=== PATIENT | male | born 1990 | race Caucasian/White ===

== ENCOUNTER 2017-08-19 00:37 | Inpatient (IN) | payer SELFPAY ==
[~2017-08-19] VITALS: Ht 188 cm; Wt 79.0 kg
--- NOTE | 2017-08-19 01:06 | EMERGENCY ROOM VISIT NOTE ---
History Report prepared by Elizabeth: Lucien Kaur Under the Supervision of: Dr. Divine Javed D.O. 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 Per EMS, the patient recently had a break up and has been drinking since then. There is an obvious odor of alcohol on his breath according to EMS. In review of his medical records, he has had multiple previous visits, all alcohol related. The patient's friends at bedside. The friends state the patient 's girlfriend broke up with him three months ago. They report the patient was in the relationship for three years. I asked the patient if he was suicidal and he replied yes. HPI is limited secondary to alcohol intoxication. Source of History: patient, friend, EMS History Limited By: intoxication (alcohol) Onset: HUMAN RESOURCE OFFICER Position: other (general ) Quality: other (alcohol intoxication) Timing: other (persistent) Review of Systems ROS is limited secondary to alcohol intoxication. Past Medical & Surgical Medical Problems: (1) Alcohol abuse (2) Alcoholic intoxication (3) Suicidal intent Family History No pertinent family history Social History Alcohol Use: heavy Marital Status: single Housing Status: lives with roommate Occupation Status: employed Current/Historical Medications Unable to Obtain Active Prescriptions or Reported Meds Allergies Coded Allergies: No Known Allergies (Unverified , 03/18/13) Physical Exam Vital Signs Date Time Temp Pulse Resp B/P (MAP) Pulse Ox O2 Delivery O2 Flow Rate FiO2 08/19/17 02:37 91 20 128/72 93 Room Air 08/19/17 01:30 97 18 125/73 95 Nasal Cannula 2.0 08/19/17 01:06 95 Nasal Cannula 4.0 08/19/17 00:59 93 Room Air 08/19/17 00:57 36.4 87 20 119/75 93 Room Air 08/19/17 00:50 96 Physical Exam General: Incomprehensible speech. Smells of ETOH. Laughing inappropriately. Tossing himself about the bed. HEENT: Head - normocephalic and atraumatic Pupils are 8 mm, round, and non- reactive to light. Extraocular eye muscles are intact, and sclera are anicteric. Nose - moist nasal mucosa without discharge. Mouth - moist buccal mucosa. Oropharynx is nonerythematous and there is no tonsillar exudate or edema noted. Neck: Supple; no JVD, nuchal rigidity, cervical lymphadenopathy. Heart: Tachycardic rate, regular rhythm. There is a normal S1 and S2 with no murmurs, clicks, or gallops appreciated. Lungs: Clear to auscultation bilaterally with no wheezes, rales, or rhonchi. Abdomen: Soft, completely nontender, nondistended, with good bowel sounds. There are no palpable pulsatile masses or hepatosplenomegaly. There is no guarding, rigidity, or rebound noted. Extremities: No evidence of cyanosis, clubbing, or edema. There are easily palpable peripheral pulses. Skin: warm and dry with good turgor and no rashes. Medical Decision & Procedures Laboratory Results 08/19/17 02:23 Red Blood Count 4.99, Mean Corpuscular Volume 96.6, Mean Corpuscular Hemoglobin 34.3, Mean Corpuscular Hemoglobin Concent 35.5, Mean Platelet Volume 9.1, Neutrophils (%) (Auto) 56.9, Lymphocytes (%) (Auto) 33.5, Monocytes (%) (Auto) 7.6, Eosinophils (%) (Auto) 1.1, Basophils (%) (Auto) 0.8, Neutrophils # (Auto) 5.12, Lymphocytes # (Auto) 3.01, Monocytes # (Auto) 0.68, Eosinophils # (Auto) 0.10, Basophils # (Auto) 0.07 Test 08/19/17 00:00 08/19/17 02:23 08/19/17 02:25 Urine Opiates Screen NEG (NEG) Urine Methadone, Qualitative NEG (NEG) Urine Barbiturates NEG (NEG) Urine Phencyclidine (PCP) Level NEG (NEG) Ur Amphetamine/Methamphetamine NEG (NEG) MDMA (Ecstasy) Screen NEG (NEG) Urine Benzodiazepines Screen NEG (NEG) Urine Cocaine Metabolite NEG (NEG) Urine Marijuana (THC) POS (NEG) White Blood Count 8.99 K/uL (4.8-10.8) Red Blood Count 4.99 M/uL (4.7-6.1) Hemoglobin 17.1 g/dL (14.0-18.0) Hematocrit 48.2 % (42-52) Mean Corpuscular Volume 96.6 fL (80-100) Mean Corpuscular Hemoglobin 34.3 pg (25-34) Mean Corpuscular Hemoglobin Concent 35.5 g/dl (32-36) Platelet Count 273 K/uL (130-400) Mean Platelet Volume 9.1 fL (7.4-10.4) Neutrophils (%) (Auto) 56.9 % Lymphocytes (%) (Auto) 33.5 % Monocytes (%) (Auto) 7.6 % Eosinophils (%) (Auto) 1.1 % Basophils (%) (Auto) 0.8 % Neutrophils # (Auto) 5.12 K/uL (1.4-6.5) Lymphocytes # (Auto) 3.01 K/uL (1.2-3.4) Monocytes # (Auto) 0.68 K/uL (0.11-0.59) Eosinophils # (Auto) 0.10 K/uL (0-0.5) Basophils # (Auto) 0.07 K/uL (0-0.2) RDW Standard Deviation 49.2 fL (36.4-46.3) RDW Coefficient of Variation 13.9 % (11.5-14.5) Immature Granulocyte % (Auto) 0.1 % Immature Granulocyte # (Auto) 0.01 K/uL (0.00-0.02) Prothrombin Time 9.5 SECONDS (9.0-12.0) Prothromb Time International Ratio 0.9 (0.9-1.1) Activated Partial Thromboplast Time 26.7 SECONDS (21.0-31.0) Partial Thromboplastin Ratio 1.0 Total Bilirubin 0.5 mg/dl (0.2-1) Direct Bilirubin 0.1 mg/dl (0-0.2) Aspartate Amino Transf (AST/SGOT) 26 U/L (15-37) Alanine Aminotransferase (ALT/SGPT) 30 U/L (12-78) Alkaline Phosphatase 57 U/L (45-117) Total Protein 8.2 gm/dl (6.4-8.2) Albumin 4.4 gm/dl (3.4-5.0) Salicylates Level 3.9 mg/dl (2.8-20) Acetaminophen Level < 2 ug/ml (10-30) Laboratory results per my review. Medications Administered Medications (Trade) Dose Ordered Sig/Mil Route Start Time Stop Time Status Last Admin Dose Admin Polyethylene (Miralax Powder Packet) 17 gm DAILY PRN PO 08/19/17 02:45 09/18/17 02:44 08/19/17 04:22 17 GM ED Course 0050: Past medical records reviewed. The patient was evaluated in room B2. A complete history and physical exam was performed. The patient was placed in the prone position to avoid aspiration. They were observed on the rn cardiac rehab and pulse oximeter. Labs were drawn as above 0114: I reassessed the patient at this time. He is resting. 0210: I reassessed the patient at this time. He is hemodynamically stable. The patient is significantly intoxicated with a blood alcohol near 500. An IV lock was initiated and additional laboratory testing was drawn. 0212: I spoke with Dr. Lowe, resident for Dr. Stanley, hospitalist. We discussed the patient's case. The patient will be evaluated by the [facility] for further management. 0235: I reassessed the patient at this time. He is agitated. We have tried to talk him down and he has become more cooperative. His vitals are more stable. Medical Decision The patient is a 27 year old male who presents to the ED with alcohol intoxication. Differential diagnosis includes alcohol overdose, drug intoxication, hypoglycemia, and head injury. Lab results showed: Alcohol 489. Potassium 3.4. Gluc 109. Normal renal function. The patient was brought to the emergency department for an altered mental status. There were no obvious signs of trauma or complaints of pain. They were observed closely throughout the night and remained stable while here in the ER. The patient had a blood alcohol level near 500. He was monitored closely for respiratory depression. Since the patient answered yes to my questions about attempts to harm himself, he will need to remain here in the hospital until he is clinically sober and then have evaluation by psychiatry. I discussed the case with the [facility] staff and they will evaluate for further management. Medication Reconcilliation Current Medication List: was personally reviewed by me Blood Pressure Screening Patient's blood pressure: Normal blood pressure Consults Time Called: 211 Consulting Physician: Dr. Lowe, resident for Dr. Stanley hospitalist I spoke with Dr. Lowe, resident for Dr. Stanley hospitalist. We discussed the patient's case. The patient will be evaluated by the [facility] for further management. Impression Primary Impression: Alcohol overdose Scribe Attestation The scribe's documentation has been prepared under my direction and personally reviewed by me in its entirety. I confirm that the note above accurately reflects all work, treatment, procedures, and medical decision making performed by me. Departure Information Dispostion Being Evaluated By Hospitalist Prescriptions Unable to Obtain Active Prescriptions or Reported Meds Referrals No Doctor, Assigned (PCP) Problem Qualifiers Primary Impression: Alcohol overdose Encounter type: initial encounter Injury intent: intentional self-harm Qualified Codes: T51.92XA - Toxic effect of unspecified alcohol, intentional self-harm, initial encounter
[2017-08-19 01:30] LABS: CALCIUM 8.6 mg/dl (8.5-10.1); CREATININE 0.9 mg/dl (0.60-1.40); POTASSIUM 3.4 mmol/L (3.5-5.1)
[2017-08-19 02:36] LABS: BASO % 0.8 %; BASO ABS # 0.07 K/uL (0-0.2); EOS % 1.1 %; HEMATOCRIT 48.2 % (42-52); HEMOGLOBIN 17.1 g/dL (14.0-18.0); IG# 0.01 K/uL (0.00-0.02); LYMPH % 33.5 %; LYMPH ABS # 3.01 K/uL (1.2-3.4); MEAN CELL VOLUME 96.6 fL (80-100); MEAN CORPUSCULAR HEMOGLOBIN 34.3 pg (25-34); MEAN CORPUSCULAR HGB CONC 35.5 g/dl (32-36); MEAN PLATELET VOLUME 9.1 fL (7.4-10.4); MONO % 7.6 %; MONO ABS # 0.68 K/uL (0.11-0.59); NEUT % 56.9 %; NEUT ABS # 5.12 K/uL (1.4-6.5); PLATELET COUNT 273 K/uL (130-400); RED CELL DISTRIBUTION WIDTH CV 13.9 % (11.5-14.5); RED CELL DISTRIBUTION WIDTH SD 49.2 fL (36.4-46.3); WHITE BLOOD COUNT 8.99 K/uL (4.8-10.8)
[2017-08-19] MEDS ORDERED: ONDANSETRON INJ 2 MG/ML 2 ML VIAL IV PRN (02:45)
[2017-08-19] MEDS ORDERED: ACETAMINOPHEN 325 MG TAB PO PRN (02:45)
[2017-08-19] MEDS ORDERED: POLYETHYLENE (MIRALAX) 17 GM PACK PO PRN (02:45)
[2017-08-19] MEDS ORDERED: NITROGLYCERIN 0.4 MG SL PER TAB CHARGE SL PRN (02:45)
[2017-08-19] MEDS ORDERED: ALUMINUM/MAGNESIUM/SIMETH (MAALOX MAX) 30 ML UDC PO PRN (02:45)
[2017-08-19] MEDS ORDERED: MAGNESIUM HYDROXIDE SUSP 30 ML UDC PO PRN (02:45)
[2017-08-19 02:51] LABS: INR 0.9 (0.9-1.1); PTT PATIENT 26.7 SECONDS (21.0-31.0)
[2017-08-19 02:56] LABS: ALBUMIN 4.4 gm/dl (3.4-5.0); TOTAL PROTEIN 8.2 gm/dl (6.4-8.2)
--- NOTE | 2017-08-19 03:20 | History and Physical ---
History & Physical Date & Time of Service: August 19, 2017 at 02:45 Chief Complaint: Semi Responsive, Ams Primary Care Physician: No Doctor, Assigned History of Present Illness Source: patient, clinic records, hospital records 27 yo male with recurrent (x5) alcohol-related visits to the ER previously, presents today intoxicated with an alcohol level of 489. 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 The patient declines to quantify the amount of alcohol consumption saying he drinks "enough." He admits to smoking, but declines to elaborate what he smokes, or if he takes additional substances. He admits to a recent break up with his girlfriend and states he was drinking to hurt himself. History and ROS is otherwise limited to intoxication and non-cooperation. Past Medical/Surgical History Medical Problems: Alcohol abuse Family History No pertinent family history Unknown Social History Smoking Status: Current Every Day Smoker Smokeless Tobacco Use: Unknown Alcohol Use: heavy Drug Use: marijuana Marital Status: single Occupational Status: employed Immunizations History of Influenza Vaccine: Unknown History of Tetanus Vaccine?: Unknown History of Pneumococcal: Unknown History of Hepatitis B Vaccine: Unknown Allergies Coded Allergies: No Known Allergies (Unverified , 03/18/13) Home Medications Unable to Obtain Active Prescriptions or Reported Meds Physical Exam Vital Signs Date Time Temp Pulse Resp B/P (MAP) Pulse Ox O2 Delivery O2 Flow Rate FiO2 08/19/17 02:37 91 20 128/72 93 Room Air 08/19/17 01:30 97 18 125/73 95 Nasal Cannula 2.0 08/19/17 01:06 95 Nasal Cannula 4.0 08/19/17 00:59 93 Room Air 08/19/17 00:57 36.4 87 20 119/75 93 Room Air 08/19/17 00:50 96 General Appearance: WD/WN, no apparent distress Head: normocephalic, atraumatic, + pertinent finding (drool down side of face) Eyes: sclerae normal ENT: hearing grossly normal Neck: supple Respiratory/Chest: no respiratory distress, no accessory muscle use Cardiovascular: regular rate, rhythm, no murmur, normal peripheral pulses Abdomen/GI: normal bowel sounds, non tender, soft Back: normal inspection Extremities/Musculoskelatal: no calf tenderness, no pedal edema Neurologic/Psych: alert, + pertinent finding (Patient a lot more coherent and appropriately responsive than expected for someone with such high alcohol level) Skin: normal color, warm/dry, no rash Diagnostics Laboratory Results Results Past 24 Hours Test 08/19/17 01:02 08/19/17 02:23 08/19/17 02:25 Range/Units Sodium Level 141 136-145 mmol/L Potassium Level 3.4 3.5-5.1 mmol/L Chloride Level 108 98-107 mmol/L Carbon Dioxide Level 25 21-32 mmol/L Anion Gap 8.0 3-11 mmol/L Blood Urea Nitrogen 13 7-18 mg/dl Creatinine 0.90 0.60-1.40 mg/dl Est Creatinine Clear Calc Drug Dose 117.9 ml/min Estimated GFR () 134.2 Estimated GFR (Non- 115.8 BUN/Creatinine Ratio 14.6 10-20 Random Glucose 109 70-99 mg/dl Calcium Level 8.6 8.5-10.1 mg/dl Ethyl Alcohol mg/dL 489.0 0-3 mg/dl White Blood Count 8.99 4.8-10.8 K/uL Red Blood Count 4.99 4.7-6.1 M/uL Hemoglobin 17.1 14.0-18.0 g/dL Hematocrit 48.2 42-52 % Mean Corpuscular Volume 96.6 80-100 fL Mean Corpuscular Hemoglobin 34.3 25-34 pg Mean Corpuscular Hemoglobin Concent 35.5 32-36 g/dl Platelet Count 273 130-400 K/uL Mean Platelet Volume 9.1 7.4-10.4 fL Neutrophils (%) (Auto) 56.9 % Lymphocytes (%) (Auto) 33.5 % Monocytes (%) (Auto) 7.6 % Eosinophils (%) (Auto) 1.1 % Basophils (%) (Auto) 0.8 % Neutrophils # (Auto) 5.12 1.4-6.5 K/uL Lymphocytes # (Auto) 3.01 1.2-3.4 K/uL Monocytes # (Auto) 0.68 0.11-0.59 K/uL Eosinophils # (Auto) 0.10 0-0.5 K/uL Basophils # (Auto) 0.07 0-0.2 K/uL RDW Standard Deviation 49.2 36.4-46.3 fL RDW Coefficient of Variation 13.9 11.5-14.5 % Immature Granulocyte % (Auto) 0.1 % Immature Granulocyte # (Auto) 0.01 0.00-0.02 K/uL Impression Assessment and Plan 27 yo male with recurrent (x5) alcohol-related visits to the ER previously, presents today intoxicated with an alcohol level of 489 and admits he was drinking to hurt himself. Substance abuse - Alcohol and marijuana - IVF NSS - Tylenol levels pending - Patient a lot more coherent and appropriately responsive than expected for someone with such high alcohol level - implies chronicity. Monitor for signs of alcohol withdrawal Suicidal intention - 1 to 1 ordered - Psych eval ordered VTE ppx - SCD FULL CODE Attending addendum: I have physically seen this patient, have supervised the medical residents activities, and agree with the H&P unless as otherwise noted. Assessment and Plan: Alcohol overdose/suicidal ideation-- Admit to the telemetry unit. Regular diet as tolerated. Serial alcohol levels. One-on-one Consult psychiatry. Ability to be able to communicate with an alcohol level of 489, suggest more chronic issue. Alcohol withdrawal scale. Advanced Directives Existing Advance Directive: No Existing Living Will: No Existing Power of Rapier Insertion Loom Fixer: No Resuscitation Status Full VTE Prophylaxis Will order VTE Prophylaxis: Yes Resident Tracking Resident Involvement: Resident Care Provided Care Provided: Adult Hospital Medicine
[2017-08-19 04:05] VITALS: BP 122/69; PULSE 72; TEMP 36.5; O2SAT 97; Ht 188 cm; Wt 79.0 kg
[2017-08-19] MEDS: SODIUM CHLORIDE 0.9% 1000ML 1,000 ML IV SCH ×3 (04:50→11:22)
[2017-08-19 05:00] LABS: CALCIUM 8.2 mg/dl (8.5-10.1); CREATININE 0.93 mg/dl (0.60-1.40)
[2017-08-19] MEDS ORDERED: LORAZEPAM 2 MG/ML 1 ML VIAL IV STA ×2 (06:34→07:36)
[2017-08-19] MEDS ORDERED: HALOPERIDOL LACTATE 5 MG/ML 1 ML VIAL IM STA ×2 (06:40→07:37)
[2017-08-19] MEDS ORDERED: NURSING VERBAL MED ORDER ONE ×2 (07:30)
[2017-08-19 08:00] VITALS: BP 98/46; PULSE 82; TEMP 36.7; O2SAT 95
--- NOTE | 2017-08-19 11:14 | Progress Note ---
Progress Note Date of Service August 19, 2017. Progress Note Attending follow up, patient admitted after midnight. Patient had to be sedated with Haldol and Ativan this morning, two dose of both given, resting since that time. Patient's friends arrived to check on him Asked what they saw last night, said that he arrived for work, appeared intoxicated, stepped outside for some time, returned and was extremely intoxicated, blacked out. 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 Patient has never made any suicidal statements to friends that they can recall. Urine toxicology screen negative Blood alcohol level still quite high this AM - continue supportive care with fluids, PRN Haldol and Ativan for severe agitation - thiamine and folate - psychiatry consult once he is awake and alert and cooperative to rule out suicidal thoughts - anticipate going home tomorrow
[2017-08-19] MEDS ORDERED: HALOPERIDOL LACTATE 5 MG/ML 1 ML VIAL IV PRN (11:15)
[2017-08-19] MEDS ORDERED: LORAZEPAM 2 MG/ML 1 ML VIAL IV PRN ×2 (11:15→12:00)
[2017-08-19 12:00] VITALS: BP 99/54; PULSE 88; TEMP 36.7; O2SAT 98
--- NOTE | 2017-08-19 14:38 | Discharge Instructions ---
Discharge Instructions Date of Service August 19, 2017. Admission Reason for Admission: Alcoholic Intoxication Discharge Discharge Diagnosis / Problem: Alcohol intoxication Discharge Goals Goal(s): Decrease discomfort, Improve disease control Activity Recommendations Activity Limitations: resume your previous activity . Instructions / Follow-Up Instructions / Follow-Up Blood alcohol level was extremely high at time of admission at 490, this is a dangerous level Urine drug screen negative for any other type of drugs get rest and plenty of fluids over next few days please abstain from drinking please seek medical treatment if you want treatment for depression Current Hospital Diet Patient's current hospital diet: Regular Diet Discharge Diet Recommended Diet: Regular Diet Pending Studies Studies pending at discharge: no Medical Emergencies . Who to Call and When: Medical Emergencies: If at any time you feel your situation is an emergency, please call 911 immediately. . Non-Emergent Contact Non-Emergency issues call your: Primary Care Provider . . "Provider Documentation" section prepared by Connor Bullock. . [place] Drug Monitoring Program Search Results: no issues identified
[2017-08-19 14:47] VITALS: BP 99/54; PULSE 88; TEMP 36.7; O2SAT 98
--- NOTE | 2017-08-19 15:21 | Psychiatric Consultation ---
Consultation Date of Consultation August 19, 2017. Identifying Data 27-year-old male brought to the emergency department by EMS after falling unconscious at work. We are consulted to evaluate the possibility of a suicide attempt. Information is gathered from the patient, the EMR, and considered to be reliable. Chief Complaint "I was crying in the lobby before group and said I needed to talk to someone. I drink too big mood shines from sheets and that is all I remember.". History of Present Illness The patient is a 27-year-old gentleman from the [facility], who came to [employer] to attend [employer], "it did not work out", and is now working in food service order clerk. It is reported that yesterday he was at work performing his duties and then collapsed to the floor unconscious. A friend reported that he had gone through a breakup and was worried he was suicidal. Upon my interview today, he has just awoken after having been given Haldol and Ativan this morning when he was agitated. He says the last thing he remembers is drinking the 2 moonshine's and then does not remember anything until waking up in ICU. He admits that he went through a breakup in May of this year and that he was sad but is "getting over it". He denies there was any suicidality and drinking the alcohol and denies that he has seen himself as depressed. He indicates that his sleep and appetite have been good. He admits that he has been drinking heavily for the last month and a half, and drinking almost daily for quite some time. He denies any vegetative symptoms of depression. He is interested in getting out of the hospital, not thinking he needs to be here any longer. He is not interested in inpatient alcohol rehab, not interested in a referral for outpatient treatment for substances or for mood issues. Past Psychiatric History Current OP Treatment: no current treatment Prior OP Treatment: no prior treatment Prior Psych Hospitalizations: none Access to a Gun: No Suicide Attempts: No Past Medical/Surgical History (1) Alcoholic intoxication Allergies Allergies: Coded Allergies: No Known Allergies (Unverified , 03/18/13) Home Medications Unable to Obtain Active Prescriptions or Reported Meds Family History No pertinent family history History of Suicide: No History of Substance Abuse: No Psychiatric History: No Alcohol Use Alcohol Use In Past 12 Months: Yes Drinks almost daily until he is blacked out Smoking Use Smoking Status: Current Every Day Smoker Substance History Smokes marijuana, but denies other illegal substances Personal History Lives in: [place] Childhood: [place] Education: started college Relationship History: never Children: none Psychological Trauma History: Significant Loss Review of Systems Constitutional: denies no symptoms reported, denies see HPI, denies chills, denies diaphoresis, denies fever, denies malaise, denies weakness, denies other Eyes: denies: no symptoms, as stated in HPI, eye pain, tearing, itching, redness, discharge, double vision, visual changes, blurred vision, photophobia, other ENT: denies: no symptoms reported, see HPI, ear pain, ear discharge, loss of hearing, tinnitus, nasal pain, nasal congestion, rhinorrhea, epistaxis, sore throat, stidor, throat swelling, mouth pain, mouth swelling, dental pain, gum swelling, other Cardiovascular: denies: no symptoms reported, see HPI, chest pain, chest tightness, chest pressure, diaphoresis, palpitations, syncope, other Respiratory: denies: no symptoms reported, see HPI, cough, orthopnea, short of breath, stridor, wheezing, sputum production, cyanosis, FISCHER, PND, other Gastrointestinal: denies no symptoms reported, denies see HPI, denies abdominal pain, denies constipation, denies diarrhea, denies nausea, denies vomiting, denies other Genitourinary - Male: denies: no symptoms, see HPI, rash, amenorrhea, penile itching, penile discharge, testicular pain, testicular swelling, impotence, other Musculoskeletal: denies no symptoms reported, denies see HPI, denies back pain , denies gout, denies joint pain, denies joint swelling, denies muscle pain, denies muscle stiffness, denies neck pain, denies other Integumentary: denies no symptoms reported, denies see HPI, denies change in color, denies change in hair/nails, denies dryness, denies lesions, denies lumps , denies rash, denies other Neurologic: denies: no symptoms, see HPI, headache, numbness, paresthesias, pre -existing deficit, seizure, tingling, tremors, general weakness, tics, focal weakness, vertigo, lethargy, memory loss, dizziness, other Endocrine: denies: no symptoms, as stated in HPI, cold intolerance, heat intolerance, hair changes, goiter, polydipsia, polyuria, skin changes, other Hematologic / Lymphatic: denies: no symptoms, as stated in HPI, abnormal clotting, adenopathy, anemia, easy bleeding, easy bruising, gums bleeding, petechiae, other Examination Vital Signs Vital Signs Past 12 Hours Date Time Temp Pulse Resp B/P (MAP) Pulse Ox O2 Delivery O2 Flow Rate FiO2 08/19/17 14:47 36.7 88 16 98 Room Air 08/19/17 12:00 36.7 88 16 99/54 (69) 98 08/19/17 12:00 Room Air 08/19/17 08:00 36.7 82 15 98/46 (63) 95 08/19/17 08:00 Room Air 08/19/17 04:05 36.5 72 18 122/69 97 Room Air 08/19/17 03:30 91 16 120/65 97 Room Air Laboratory Results Last 24 Hours Test 08/19/17 00:00 08/19/17 01:02 08/19/17 02:23 08/19/17 02:25 Urine Opiates Screen NEG Urine Methadone, Qualitative NEG Urine Barbiturates NEG Urine Phencyclidine (PCP) Level NEG Ur Amphetamine/Methamphetamine NEG MDMA (Ecstasy) Screen NEG Urine Benzodiazepines Screen NEG Urine Cocaine Metabolite NEG Urine Marijuana (THC) POS Sodium Level 141 mmol/L Potassium Level 3.4 mmol/L Chloride Level 108 mmol/L Carbon Dioxide Level 25 mmol/L Anion Gap 8.0 mmol/L Blood Urea Nitrogen 13 mg/dl Creatinine 0.90 mg/dl Est Creatinine Clear Calc Drug Dose 117.9 ml/min Estimated GFR () 134.2 Estimated GFR (Non- 115.8 BUN/Creatinine Ratio 14.6 Random Glucose 109 mg/dl Calcium Level 8.6 mg/dl Ethyl Alcohol mg/dL 489.0 mg/dl White Blood Count 8.99 K/uL Red Blood Count 4.99 M/uL Hemoglobin 17.1 g/dL Hematocrit 48.2 % Mean Corpuscular Volume 96.6 fL Mean Corpuscular Hemoglobin 34.3 pg Mean Corpuscular Hemoglobin Concent 35.5 g/dl Platelet Count 273 K/uL Mean Platelet Volume 9.1 fL Neutrophils (%) (Auto) 56.9 % Lymphocytes (%) (Auto) 33.5 % Monocytes (%) (Auto) 7.6 % Eosinophils (%) (Auto) 1.1 % Basophils (%) (Auto) 0.8 % Neutrophils # (Auto) 5.12 K/uL Lymphocytes # (Auto) 3.01 K/uL Monocytes # (Auto) 0.68 K/uL Eosinophils # (Auto) 0.10 K/uL Basophils # (Auto) 0.07 K/uL RDW Standard Deviation 49.2 fL RDW Coefficient of Variation 13.9 % Immature Granulocyte % (Auto) 0.1 % Immature Granulocyte # (Auto) 0.01 K/uL Prothrombin Time 9.5 SECONDS Prothromb Time International Ratio 0.9 Activated Partial Thromboplast Time 26.7 SECONDS Partial Thromboplastin Ratio 1.0 Total Bilirubin 0.5 mg/dl Direct Bilirubin 0.1 mg/dl Aspartate Amino Transf (AST/SGOT) 26 U/L Alanine Aminotransferase (ALT/SGPT) 30 U/L Alkaline Phosphatase 57 U/L Total Protein 8.2 gm/dl Albumin 4.4 gm/dl Salicylates Level 3.9 mg/dl Acetaminophen Level < 2 ug/ml Test 08/19/17 04:26 Sodium Level 146 mmol/L Potassium Level 5.0 mmol/L Chloride Level 110 mmol/L Carbon Dioxide Level 32 mmol/L Anion Gap 4.0 mmol/L Blood Urea Nitrogen 10 mg/dl Creatinine 0.93 mg/dl Est Creatinine Clear Calc Drug Dose 114.1 ml/min Estimated GFR () 129.0 Estimated GFR (Non- 111.3 BUN/Creatinine Ratio 10.3 Random Glucose 104 mg/dl Calcium Level 8.2 mg/dl Ethyl Alcohol mg/dL 425.0 mg/dl Mental Examination During interview pt is: cooperative Appearance: disheveled Eye contact is: poor Motor behavior is: no abnormal motor movements Speech: normal in rate, rhythm & volume Affect: other (tired) Mood is: other ("OK") Thought process: goal directed Thought content: reality based without delusions Suicidal thought are: denied Homicidal thoughts are: denied Hallucinations: denies auditory, denies visual Cognition: language grossly intact Intelligence estimated to be: average Insight: limited Judgement: limited Impression / Recommendations Impression 27-year-old male admitted after having become unresponsive at work. Today he tells me he drank 2 large mood shines and remembers nothing after that. He admits he has been drinking almost daily to black [employer] for the last month and a half. He admits to a recent breakup in May but denies that he has felt depressed, feels like he is getting over, and denies any suicidal intention. He does not remember making a suicidal statement in the emergency department. He has no history of depression, suicide attempts or hospitalizations. There is no family history for depression or suicide. He denies suicidality at this time, wants no help with his alcohol abuse or referrals for mental health treatment. I believe the patient is safe for discharge from psychiatric point of view. Risk Factors Assessment Male: Yes : Yes /single/: Yes Higher / Fall in social status: No Access to guns: No Health problems: No Mental Health Diagnoses: No Substance use disorders: Yes Previous attempt: No Family history of suicide: No Previous psychiatric stay: No Smoker: Yes Protective Factors Assessment : No Responsible for young children: No Employed: Yes Recommendations (1) Alcoholic intoxication 08/19 -The patient denies that his drinking was a suicide attempt, denies having suicidal thoughts. He does not have a history of depression, treatment, suicide attempts, hospitalizations, and no family history. He is refusing any kind of referral for evaluation for substance use counseling or mental health intervention. I believe the patient is safe for discharge from a psychiatric point of view Dr. Jennifer grigsby was personally involved in the review of this case and development of these recommendations.
[2017-08-20] MEDS ORDERED: FoLIC ACID INJ 1 MG in SYRINGE 9.8 ML IV SCH (09:00)
[2017-08-20] MEDS ORDERED: THIAMINE HCL INJ 100 MG in SYRINGE 9 ML IV SCH (09:00)
--- NOTE | 2017-08-20 09:03 | Discharge Summary ---
Discharge Summary Date of Service August 19, 2017. Discharge Summary Admission Date: August 19, 2017 at 03:13 Discharge Date: August 19, 2017 Discharge Disposition: Home Principal Diagnosis: Alcohol intoxication Immunizations: Have You Had Influenza Vaccine: Unknown History of Tetanus Vaccine?: Unknown History of Pneumococcal: Unknown History of Hepatitis B Vaccine: Unknown Procedures: none Consultations: Psychiatry Medication Reconciliation Medication Profile: Unable to Obtain Active Prescriptions or Reported Meds Discharge Exam Patient sleeping most of the morning after being sedated with Haldol and Ativan due to agitation. He woke up later in the afternoon, agreed to speak with psychiatry. He would not agree to any outpatient referrals. He denied suicidal ideations. He denied thoughts to harm others. He just wanted to go home and sleep. Per psychiatry, there was no reason to commit him. Discharged to home. Review of Systems: Constitutional: + fatigue, No fever, No chills, No sweats, No weight loss, No weakness, No problem reported Eyes: No worsening of vision, No eye pain, No redness, No discharge, No diplopia, No problem reported ENT: No hearing loss, No unusual epistaxis, No nasal symptoms, No sore throat, No tinnitus, No dental problems, No trouble swallowing, No problem reported Respiratory: No cough, No sputum, No wheezing, No shortness of breath, No dyspnea on exertion, No dyspnea at rest, No hemoptysis, No problem reported Cardiovascular: No chest pain, No orthopnea, No PND, No edema, No claudication, No palpitations, No problem reported Abdomen: No pain, No nausea, No vomiting, No diarrhea, No constipation, No GI bleeding, No problem reported Musculoskeletal: No joint pain, No muscle pain, No swelling, No calf pain, No problem reported Genitourinary - Male: No hematuria, No dysuria, No urinary frequency, No urinary urgency Neurologic: No memory loss, No paralysis, No weakness, No numbness/tingling , No vertigo, No balance problems, No problem reported Psychiatric: + depression symptoms, + substance abuse (alcohol), No anhedonism, No anxiety, No insomnia, No problem reported Endocrine: No fatigue, No excessive thirst, No excessive urination, No problem reported Hematologic / Lymphatic: No abnormal bleeding/bruising, No clotting problems , No swollen lymph nodes, No night sweats, No problem reported Integumentary: No rash, No itch, No new/changing skin lesions, No color change, No bleeding, No problem reported Physical Exam: General Appearance: WD/WN, no apparent distress Eyes: normal inspection, EOMI, sclerae normal ENT: normal ENT inspection, hearing grossly normal, pharynx normal Neck: supple, no adenopathy, thyroid normal, no JVD, trachea midline Respiratory/Chest: chest non-tender, lungs clear, normal breath sounds, no respiratory distress, no accessory muscle use Cardiovascular: regular rate, rhythm, no edema, no gallop, no JVD, no murmur , normal peripheral pulses Abdomen / GI: normal bowel sounds, non tender, soft, no organomegaly Extremities: normal inspection, no calf tenderness, normal capillary refill , no pedal edema, normal range of motion, non-tender, pelvis stable 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 Substance abuse - Alcohol intoxication alcohol 489 on admission, dropped to 423 several hours later agitated when he woke up, angry and aggressive, required Haldol and Ativan in the morning on 08/19 aggressive IV hydration with NSS at 200cc/hr urine drug screen negative discussed situation with patient's friends, said that he has been drinking more than in the past, triggered by break up with girlfriend 2 months prior after lunch he woke up and was calm, coherent wanted to go home and sleep vitals stable, discharged to home Possible depression with reported suicidal ideation per friends/EMS he may have stated he was drinking a lot to harm himself evaluated by psychiatry, he denied suicidal ideation did not want to talk much with psychiatry, refused outpatient referral there was no basis for commitment, he wanted to go home Total Time Spent: Less than 30 minutes This includes examination of the patient, discharge planning, medication reconciliation, and communication with other providers. Discharge Instructions Please refer to the electronic Patient Visit Report (Discharge Instructions) for additional information.
== END 2017-08-19 15:08 | disposition home or self-care (01) | DRG 918 ==
LOC: EDBD 00:37 → C.EDB 00:38 → C.MSICU 03:13 → ENRESERV 03:27
PROVIDERS: ADMIT Hospitalist; ATTEND Internal Medicine
DX: T51.92XA Toxic effect of unspecified alcohol, intentional self-harm, initial encounter (principal); F32.9 Major depressive disorder, single episode, unspecified; Y90.8 Blood alcohol level of 240 mg/100 ml or more; F17.200 Nicotine dependence, unspecified, uncomplicated; F12.10 Cannabis abuse, uncomplicated